=== PATIENT | female | born 1960 | race Caucasian/White ===

== ENCOUNTER 2021-11-12 03:47 | Outpatient (CLI) | payer MEDICARE, SELFPAY ==
[2021-11-12 09:40] LABS: Source Nasal/Nares
[2021-11-12 10:19] LABS: COVID-19 PCR Negative (Negative)
== END 2021-11-12 03:48 | disposition home or self-care (01) ==
LOC: LBO 03:47
PROVIDERS: PCP Nurse Practitioner; Visit Provider Ophthalmology
DX: Z20.822 Contact with and (suspected) exposure to COVID-19 (principal); Z01.818 Encounter for other preprocedural examination
CPT/HCPCS: 87635